=== PATIENT | male | born 1965 | race Caucasian/White ===

== ENCOUNTER 2020-04-30 18:39 | Emergency (ER) | payer OTHER, SELFPAY ==
[2020-04-30] VITALS (8 sets, daily range): BP systolic 121–133; BP diastolic 67–88; RESP 18; TEMP 36.8; O2SAT 90–97
[2020-04-30 19:16] LABS: Add Urine Microscopic? YES; Appearance Urine Clear (Clear); Bilirubin Urine Negative (Negative); Blood Urine Negative (Negative); Color Urine Yellow (Yellow); Glucose Urine UA Negative (Negative); Ketones Urine Trace mg/dL (Negative); Leukocyte Esterase Ur Negative LEU/UL (Negative); Mucus Urine Rare /lpf; Nitrate Urine Negative (Negative); Protein Urine 2+ mg/dL (Negative); RBC Urine 0-2 /hpf (0-2); WBC Urine 0-3 /hpf
[2020-04-30 19:21] LABS: Specific Grav Ur 1.032 (1.001-1.035)
[2020-04-30 19:31] LABS: Basophils Percent Auto 0.2 % (0.2-1.2); Eosinophils Percent Auto 0.4 % (0-4.4); Hematocrit 50.2 % (42.0-52.0); Hemoglobin 16.2 g/dL (14.0-18.0); Immature Granulocyte Absolute 0.03 K/mm3 (0.00-0.031); Immature Granulocyte Percent A 0.6 % (0-0.5); Lymphocytes Absolute Auto 1.13 K/mm3 (0.9-3.2); Lymphocytes Percent Auto 22.9 % (18.3-44.2); Mean Corpuscular HGB Conc 32.3 g/dl (32-36); Mean Corpuscular Volume 83.5 fl (80-100); Mean Platelet Volume 8.9 fl (7.4-10.4); Monocytes Absolute Auto 0.3 K/mm3 (0.1-0.6); Monocytes Percent Auto 5.5 % (2.6-8.5); Neutrophils Absolute Auto 3.5 K/mm3 (1.3-6.7); Neutrophils Percent Auto 70.4 % (45.5-73.1); Platelet Count Result 260 k/mm3 (150-375); Red Blood Count 6.01 M/mm3 (4.6-6.20); Red Cell Distribution Width 13.5 % (11.5-14.5); White Blood Count 4.9 K/mm3 (4.5-10.0)
[2020-04-30] MEDS: SODIUM CHLORIDE 0.9% IV 1,000 ML 999 ML IV CONT (19:49)
--- NOTE | 2020-04-30 19:54 | ED.GENADULT ---
HPI - General Adult General Chief complaint: Urogenital-Male Stated complaint: Retaining urine Time Seen by Provider: 04/30/20 18:44 Source: patient History of Present Illness HPI narrative: Patient is a 55 y/o male complaining of decreased urination for last several days. He states that he has to really try hard to urinate. There is no known alleviating or exacerbating factor. He has no fever, chills, cough, chest pain, abdominal pain or vomiting. He has some diarrhea. He states that he tested positive for COVID 11 days ago. Related Data Home Medications Medication Instructions Recorded Confirmed albuterol sulfate 90 mcg/actuation 1 puff INHALATION Q4H PRN 10/18/19 02/08/20 aerosol inhaler umeclidinium 62.5 mcg-vilanterol 1 inhalation INHALATION DAILY 10/18/19 02/08/20 25 mcg/actuation powdr for inhalation bupropion HCl PO 04/30/20 ciprofloxacin HCl 04/30/20 rosuvastatin mg 04/30/20 umeclidinium-vilanterol [Anoro INHALATION 04/30/20 Ellipta] Allergies Allergy/AdvReac Type Severity Reaction Status Date / Time No Known Allergies Allergy Verified 04/30/20 18:50 Review of Systems Constitutional: Constitutional: Denies chills, Denies fever(s), Denies headache(s) and Denies weakness Eyes: Eyes: Denies blurry vision ENT: Denies headache(s) and Denies neck pain Cardiovascular: Cardiovascular: Denies chest pain and Denies dyspnea Respiratory: Respiratory: Denies cough and Denies dyspnea Gastrointestinal: Gastrointestinal: Denies abdominal pain, Reports diarrhea, Denies nausea and Denies vomiting Genitourinary: Genitourinary: Denies hematuria, Reports oliguria and Denies dysuria Musculoskeletal: Musculoskeletal: Denies back pain and Denies neck pain Neurologic: Denies headache(s) and Denies weakness [facility] Social History Social History Smoking status: Former smoker Alcohol intake: never Exam Const: General: no acute distress and well developed Orientation/consciousness: oriented to person, oriented to place, oriented to time and patient oriented x3 HENMT: Head: normocephalic Ears: external ears normal General nose exam: Normal external nose present Eyes: General: appearance normal, both eyes and all related structures Conjunctivae: conjunctivae normal Neck: Neck: normal visual inspection and full ROM Chest: Chest palpation & inspection: normal inspection of the chest and no tenderness Resp: Effort & Inspection: normal respiratory effort Auscultation: clear to auscultation bilaterally Cardio: Rate: regular rate Rhythm: regular rhythm GI: GI Palp: No abdominal tenderness and Yes Soft to palpation Skin: General skin exam: normal color and turgor normal Neuro: General: oriented to person, oriented to place, oriented to time and patient oriented x3 Cognition (Neuro): normal cognition Extrem: General: normal to inspection, full ROM and no pedal edema Psych: Appearance: grossly normal Mental Status: mental status grossly normal Affect: normal affect Course Vital Signs Vital signs: Vital Signs Temperature 36.8 C 04/30/20 18:44 Respiratory Rate 18 04/30/20 18:44 Blood Pressure 133/88 04/30/20 18:44 Pulse Oximetry 97 04/30/20 18:44 Temperature 36.8 C 04/30/20 20:21 Respiratory Rate 18 04/30/20 18:44 Blood Pressure 121/67 04/30/20 20:45 Pulse Oximetry 96 04/30/20 20:45 Medical Decision Making Vital Signs Vital Signs: Vital Signs Temperature 36.8 C 04/30/20 18:44 Respiratory Rate 18 04/30/20 18:44 Blood Pressure 133/88 04/30/20 18:44 Pulse Oximetry 97 04/30/20 18:44 Temperature 36.8 C 04/30/20 20:21 Respiratory Rate 18 04/30/20 18:44 Blood Pressure 121/67 04/30/20 20:45 Pulse Oximetry 96 04/30/20 20:45 Lab Data Result diagrams: 04/30/20 19:25 04/30/20 19:47 Labs: Lab Results 04/30/20 04/30/20 04/30/20 Range/Units
[2020-04-30 20:03] LABS: Anion Gap 11 mmol/L (8-16); Blood Urea Nitrogen 18 mg/dL (9-20); Carbon Dioxide 34 mmol/L (22-30); Chloride 91 mmol/L (98-107); Estimated CRCL calculation 77 ml/min; Estimated Glomerular Filt Rate > 60; Glucose 140 mg/dL (75-110); Potassium 3.8 mmol/L (3.4-5.0); Sodium 136 mmol/L (137-145)
== END 2020-04-30 20:48 | disposition home or self-care (01) ==
PROVIDERS: Emergency Provider Emergency Medicine; PCP Family Medicine
DX: E86.0 Dehydration (principal); Z86.19 Personal history of other infectious and parasitic diseases
CPT/HCPCS: 36415; 80048; 81001; 85025; 96360; 99283; J7030

== ENCOUNTER 2021-02-25 02:51 | Day surgery (SDC) | payer OTHER, SELFPAY ==
[2021-02-10 09:35] VITALS: BMI 28.5
[2021-02-25 09:25] VITALS: BP 153/89; PULSE 88; RESP 16; TEMP 36.8; O2SAT 98; BMI 27.5
--- NOTE | 2021-02-25 09:36 | WPDGICN ---
Assessment and Plan Assessment and plan (1) Screen for colon cancer: Code(s): Z12.11 - Encounter for screening for malignant neoplasm of colon Status: Acute Assessment and Plan: Patient presents for colon cancer screening colonoscopy. This report follows separately . patient appears to be at average risk for colon polyps. GI Consult Note Consult date/time: 02/25/21 09:36 HPI: Paulie Rogel is a 55 year old male Presents for screening colonoscopy. Patient reports that his current weight appetite bowel movements are normal. He denies abdominal pain. He has had no bleeding. Family history is noncontributory. Review of Systems Review of Systems: All systems reviewed & are unremarkable except as noted in HPI and below PMFSH Past Medical History Medical History (Updated 12/02/20 @ 14:54 by Lg Rush MD) BMI 27.0-27.9,adult BMI 29.0-29.9,adult Chronic upper back pain Hyperlipidemia Screen for colon cancer Social History Social History Years smoked: 35 Smoking status: Former smoker Additional smoking assessment comments: smoked 2 pk/day Alcohol intake: never Substance use type: does not use Living arrangements: with family Additional living arrangements comments: Lives with spouse Spiritual care concerns: No Meds Home Medications and Allergies Home Medications Medication Instructions Recorded Confirmed Type albuterol sulfate 90 mcg/actuation 1 puff INHALATION Q4H PRN 10/18/19 02/25/21 History aerosol inhaler glipizide 5 mg tablet 5 mg PO BID #60 tablet 02/08/20 02/25/21 Rx umeclidinium-vilanterol [Anoro 62.5 ea INHALATION DAILY 04/30/20 02/25/21 History Ellipta] metformin 1,000 mg tablet 1,000 mg PO BID #180 tablet 05/05/20 02/25/21 Rx fluticasone propionate 50 2 spray NASAL DAILY #18.2 ml 07/05/20 02/25/21 Rx mcg/actuation nasal spray,suspension escitalopram oxalate 20 mg tablet 20 mg PO DAILY #30 tablet 10/14/20 02/25/21 Rx trazodone 50 mg tablet 50 mg PO DAILY #30 tablet 11/03/20 02/25/21 Rx rosuvastatin 40 mg tablet 40 mg PO DAILY #30 tablet 11/11/20 02/25/21 Rx bupropion HCl 150 mg tablet,12 hr See Rx Instructions .ROUTE 01/20/21 02/25/21 Rx sustained-release .COMPLEX #30 tablet allopurinol 300 mg tablet 300 mg PO DAILY #30 tablet 02/17/21 02/25/21 Rx Allergies Allergy/AdvReac Type Severity Reaction Status Date / Time No Known Allergies Allergy Verified 02/25/21 09:24 Vital Signs Vital Signs - 24 hr 02/25/21 09:25 Temperature 98.2 F Pulse Rate 88 Respiratory Rate 16 Blood Pressure 153/89 H Pulse Oximetry 98 Exam Narrative: Physical exam reveals patient be alert. Vital signs stable. HEENT exam is unremarkable. Patient is anicteric. Lungs are clear to auscultation and percussion. Heart is without murmur or extra sounds. Abdominal exam bowel sounds are present soft nontender with no hepatosplenomegaly. Digital external rectal exam normal.
[2021-02-25 09:43] LABS: Glucose Point of Care 165 mg/dl (65-105)
[2021-02-25] MEDS: LACTATED RINGERS 1,000 ML 150 ML IV CONT (09:52)
--- NOTE | 2021-02-25 09:58 | WPDANESEPPF ---
Anes - Initial Pre Proc Eval Procedure: Operation Date: 02/25/21 10:45 Proposed Procedures p Screening Colonoscopy - Karthikeyan Garcia MD Date/Time: 02/25/21 09:58 Surgeon: Karthikeyan Garcia MD Pre Op Diagnosis: neoplasm screening Patient Data Age: 55 Gender: M Height: 1.8 m Weight: 89.5 kg Last Vital Signs Temp 36.8 C 02/25/21 09:25 Pulse 88 02/25/21 09:25 Resp 16 02/25/21 09:25 BP 153/89 H 02/25/21 09:25 Pulse Ox 98 02/25/21 09:25 Allergies Allergy/AdvReac Type Severity Reaction Status Date / Time No Known Allergies Allergy Verified 02/25/21 09:24 Home Medications Medication Instructions Recorded Confirmed Type albuterol sulfate 90 mcg/actuation 1 puff INHALATION Q4H PRN 10/18/19 02/25/21 History aerosol inhaler glipizide 5 mg tablet 5 mg PO BID #60 tablet 02/08/20 02/25/21 Rx umeclidinium-vilanterol [Anoro 62.5 ea INHALATION DAILY 04/30/20 02/25/21 History Ellipta] metformin 1,000 mg tablet 1,000 mg PO BID #180 tablet 05/05/20 02/25/21 Rx fluticasone propionate 50 2 spray NASAL DAILY #18.2 ml 07/05/20 02/25/21 Rx mcg/actuation nasal spray,suspension escitalopram oxalate 20 mg tablet 20 mg PO DAILY #30 tablet 10/14/20 02/25/21 Rx trazodone 50 mg tablet 50 mg PO DAILY #30 tablet 11/03/20 02/25/21 Rx rosuvastatin 40 mg tablet 40 mg PO DAILY #30 tablet 11/11/20 02/25/21 Rx bupropion HCl 150 mg tablet,12 hr See Rx Instructions .ROUTE 01/20/21 02/25/21 Rx sustained-release .COMPLEX #30 tablet allopurinol 300 mg tablet 300 mg PO DAILY #30 tablet 02/17/21 02/25/21 Rx Laboratory Tests 02/25/21 09:33 POC Capillary Glucose 165 mg/dl H mg/dl (65-105) Patient hx anesthesia problems: none Family hx anesthesia problems: none Results Review: All pre-operative results and documents have been reviewed as part of the pre-operative evaluation. [facility] Past Medical History Medical History BMI 27.0-27.9,adult BMI 29.0-29.9,adult Chronic upper back pain Hyperlipidemia Screen for colon cancer Social History Social History Years smoked: 35 Smoking status: Former smoker Additional smoking assessment comments: smoked 2 pk/day Alcohol intake: never Substance use type: does not use Living arrangements: with family Additional living arrangements comments: Lives with spouse Spiritual care concerns: No Anes - Eval Final PreProcedure Day of Procedure 02/25/21 09:58 Patient weight: overweight Heart: regular rate and rhythm Lungs: clear to auscultation Airway: Mallampati scale class II Neurological: alert and oriented Last oral intake: >/= 8 hours ASA classification: III Emergent: no Anesthetic plan: proceed Anesthesia type and monitoring: general GIVS and standard monitoring Results Review: All pre-operative results and documents have been reviewed as part of the pre-operative evaluation. Informed Consent: The patient's anesthetic plan and its attendant risks and benefits were discussed with the patient/family/POA. Questions were solicited and answers provided to the satisfaction of the patient/family/POA.
[2021-02-25 10:36] VITALS: BP 85/51; PULSE 81; RESP 17; O2SAT 93
[2021-02-25 10:46] VITALS: BP 104/56; PULSE 83; RESP 20; O2SAT 96
[2021-02-25 10:56] VITALS: BP 118/80; PULSE 80; RESP 23; O2SAT 100
== END 2021-02-25 11:03 | disposition home or self-care (01) ==
PROVIDERS: PCP Family Medicine; Visit Provider Internal Medicine Gastroenterology
PROC: 0DJD8ZZ Inspection of Lower Intestinal Tract, Via Natural or Artificial Opening Endoscopic (ICD-10-PCS; CPT 45378; principal; 2021-02-25 10:45)
DX: Z12.11 Encounter for screening for malignant neoplasm of colon (principal); D12.8 Benign neoplasm of rectum; K64.8 Other hemorrhoids; E78.5 Hyperlipidemia, unspecified; Z87.891 Personal history of nicotine dependence
CPT/HCPCS: 45385; 82948; 88305; J2704; J7120

== ENCOUNTER 2023-03-06 08:45 | Emergency (ER) | payer OTHER, SELFPAY ==
--- NOTE | 2023-03-06 08:50 | ED.URI ---
HPI - URI/Sore Throat General Chief Complaint: Upper Respiratory Infection Stated Complaint: sorethroat Time Seen by Provider: 03/06/23 08:48 Source: patient Mode of arrival: ambulatory Limitations: no limitations History of Present Illness HPI Narrative: Paulie is a 57-year-old male patient presenting to the clinic today with complaints of sore throat x4 days. Woke up with a ?sinus ? headache this morning. he reports no known fever or chills. Does have slight cough and congestion. Denies any chest pain or unusual shortness of breath. Patient does have history of COPD. No known exposure to anyone with COVID, flu, or strep. MD elicited complaint: sore throat and nasal congestion Related Data Home Medications Medication Instructions Recorded Confirmed albuterol sulfate 90 mcg/actuation 1 puff inhalation Q4H PRN 10/18/19 03/06/23 aerosol inhaler (Ventolin HFA) Shortness Of Breath umeclidinium 62.5 mcg-vilanterol 62.5 ea inhalation DAILY 04/30/20 03/06/23 25 mcg/actuation powdr for inhalation (Anoro Ellipta) Allergies Allergy/AdvReac Type Severity Reaction Status Date / Time No Known Allergies Allergy Verified 03/06/23 08:52 Review of Systems Review of Systems: Pertinent positives per HPI. Patient denies any fever, chills, rash, visual changes, dizziness, chest pain, palpitations, nausea, vomiting, diarrhea, constipation, abdominal pain, or any urinary issues. PMFSH Past Medical History Medical History BMI 27.0-27.9,adult BMI 29.0-29.9,adult Chronic upper back pain Hyperlipidemia Screen for colon cancer Family History Family History Father Acute myocardial infarction Heart disease Mother Diabetes mellitus Sibling Heart disease Acute myocardial infarction Social History Social History Years smoked: 35 Smoking status: Former smoker Second hand tobacco smoke exposure: No Additional smoking assessment comments: smoked 2 pk/day Alcohol intake: former Substance use: never Substance use type: does not use Lack of Transportation: No Lack of Food: Never True Current Housing: I Have Housing Concerned About Future Housing: No Difficulty Paying Gas/Electric Bills: No Difficulty Paying for Meds: No Currently Unemployed: No Education: Trade/Vocational Certificate Difficulty w/ Childcare or Family Care: No Living arrangements: with family Additional living arrangements comments: Lives with spouse Occupation/Education: occupation 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 Gender identity (if verbalized by the patient): Male Spiritual care concerns: No Comments At the time of my signature, I reviewed and agree with the nursing past medical, surgical, social, and family history. There is no relevant family history pertinent to the patient complaint. Exam Narrative: General: Well-developed, well nourished, in no apparent distress Head: Normocephalic, atraumatic Eyes: Pupils equally round and reactive to light bilaterally, EOM intact, sclera and conjunctive clear, no discharge, lids normal Ears: TMs intact and clear, ear canals clear, no drainage, grossly hearing normal. Nose: Nares patent, clear nasal discharge, no inflammation, no sinus tenderness. Mouth: Oral pharynx red with exudate to the left tonsil without lesions or masses, good dentition, MMM. Postnasal drip Neck: Supple, trachea midline, no enlargement of anterior or posterior cervical nodes, no thyroid masses or goiter palpable. Cardio: Regular rate and rhythm, s1 and s2 normal, no murmur appreciated. Resp: Clear to auscultation bilaterally, no rhonchi, rales, wheezing or rubs Course Course Emergency Course: Portions of this record may have been created with
[2023-03-06 08:54] VITALS: BP 134/69; PULSE 86; RESP 18; TEMP 36.9; O2SAT 98
== END 2023-03-06 09:09 | disposition home or self-care (01) ==
PROVIDERS: Emergency Provider Nurse Practitioner Family; PCP Family Medicine
DX: J02.9 Acute pharyngitis, unspecified (principal); J06.9 Acute upper respiratory infection, unspecified; Z87.891 Personal history of nicotine dependence; E78.5 Hyperlipidemia, unspecified; J44.9 Chronic obstructive pulmonary disease, unspecified
CPT/HCPCS: 87081; 87880; 99213; G0463

== ENCOUNTER 2023-06-08 12:39 | Emergency (ER) | payer OTHER, SELFPAY ==
[2023-06-08 12:57] VITALS: BP 116/65; PULSE 84; RESP 16; TEMP 36.7; O2SAT 99
--- NOTE | 2023-06-08 12:57 | ED.URI ---
HPI - URI/Sore Throat General Chief Complaint: Upper Respiratory Infection Stated Complaint: cough,congestion Source: patient Mode of arrival: ambulatory Limitations: no limitations History of Present Illness HPI Narrative: 58-year-old male with a history of emphysema and DM presented for complaint of dry cough and chest congestion for of about 5 days. Endorses mild nasal drainage. Denies shortness of breath, wheezing, nausea vomiting diarrhea, fevers or chills. Took NyQuil yesterday. Related Data Home Medications Medication Instructions Recorded Confirmed albuterol sulfate 90 mcg/actuation 1 puff inhalation Q4H PRN 10/18/19 06/08/23 aerosol inhaler (Ventolin HFA) Shortness Of Breath umeclidinium 62.5 mcg-vilanterol 62.5 ea inhalation DAILY 04/30/20 06/08/23 25 mcg/actuation powdr for inhalation (Anoro Ellipta) Allergies Allergy/AdvReac Type Severity Reaction Status Date / Time No Known Allergies Allergy Verified 06/08/23 12:53 Review of Systems Review of Systems: CONSTITUTIONAL: Denies body aches, fever, chills, or sweats. EYES: Denies visual changes, redness, or discharge. ENT: Denies rhinorrhea, congestion, sore throat, or otalgia. CARDIOVASCULAR: Denies chest pain, palpitations, or edema. RESPIRATORY: Reports cough, denies sob, wheezing. GASTROINTESTINAL: Denies abdominal pain, nausea, vomiting, or diarrhea. MUSCULOSKELETAL: Denies back pain, joint pain, or myalgia. NEUROLOGIC: Denies headache, numbness, tingling, or weakness. All systems reviewed & are unremarkable except as noted in HPI and below PMFSH Past Medical History Medical History BMI 27.0-27.9,adult BMI 29.0-29.9,adult Chronic upper back pain Hyperlipidemia Screen for colon cancer Family History Family History Father Acute myocardial infarction Heart disease Mother Diabetes mellitus Sibling Heart disease Acute myocardial infarction Social History Social History Years smoked: 35 Smoking status: Former smoker Second hand tobacco smoke exposure: No Additional smoking assessment comments: smoked 2 pk/day Alcohol intake: former Substance use: never Substance use type: does not use Lack of Transportation: No Lack of Food: Never True Current Housing: I Have Housing Concerned About Future Housing: No Difficulty Paying Gas/Electric Bills: No Difficulty Paying for Meds: No Currently Unemployed: No Education: Trade/Vocational Certificate Difficulty w/ Childcare or Family Care: No Living arrangements: with family Additional living arrangements comments: Lives with spouse Occupation/Education: occupation 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 Gender identity (if verbalized by the patient): Male Spiritual care concerns: No Comments At time of signature, I have reviewed and agree with nursing past medical, surgical, social and family history unless otherwise noted. Please see nursing chart for further information. There is no relevant family history pertinent to the presenting complaint Exam Narrative: GENERAL: Well-appearing, in no acute distress. EYES: EOMI. No redness or drainage. Conjunctivae normal. ENT: Mucous membranes pink and moist. No rhinorrhea. TMs normal bilaterally. Throat normal. Uvula midline. NECK: Normal AROM. Supple. CHEST: No respiratory distress. Lungs clear to all gabriel. HEART: Regular rate and rhythm. No murmur appreciated. ABDOMEN: Soft, nontender, nondistended, normal active bowel sounds. EXTREMITIES: Normal range of motion. No edema. SKIN: Warm, dry, no rash. Capillary refill normal. Normal skin turgor. NEURO: Alert and oriented x3. Gait steady. PSYCH: Normal affect. Course Course Emergency Course: Patient is
== END 2023-06-08 13:14 | disposition home or self-care (01) ==
PROVIDERS: Emergency Provider Nurse Practitioner Family; PCP Family Medicine
DX: J40 Bronchitis, not specified as acute or chronic (principal); Z87.891 Personal history of nicotine dependence; E78.5 Hyperlipidemia, unspecified
CPT/HCPCS: 99213; G0463

== ENCOUNTER → 2023-07-01 13:03 | Outpatient (CLI) | payer OTHER, SELFPAY ==
--- NOTE | ~2023-07-01 | CT_ITS ---
CT Scan of the Chest without Contrast: Clinical Indication: Lung cancer screening, smoking history Technique: Contiguous sections were acquired throughout the chest without intravenous contrast. Dose reduction technique was used on this scan by utilizing automated exposure control and iterative recon struction technique. The dose-length product (DLP) was 132.42 mGy-cm. COMPARISON: 03/16/2019 Findings: There is no evidence of any significant mediastinal, hilar or axillary lymphadenopathy. The mediastin al soft tissues appear normal. There is no evidence of pleural or pericardial effusion. Stable area of scarring left lung apex. Scattered calcified granulomas are present. Moderate emphysem a present. Images through the upper abdomen reveal no abnormalities. Impression: Lung RADS 2: Benign appearance. 12 month follow-up screening CT advised. Reviewed, dictated and finalized at [facility]. [employer] Impression: Lung RADS 2: Benign appearance. 12 month follow-up screening CT advised.
== END ==
DX: Z12.2 Encounter for screening for malignant neoplasm of respiratory organs (principal); Z87.891 Personal history of nicotine dependence
CPT/HCPCS: 71271

== ENCOUNTER 2024-08-25 13:53 | Outpatient (CLI) | payer OTHER, SELFPAY ==
--- NOTE | ~2024-08-25 | CT_ITS ---
CT Scan of the Chest without Contrast: Clinical Indication: Lung cancer screening, nicotine dependence Technique: Contiguous sections were acquired throughout the chest without intravenous contrast. Dose reduction technique was used on this scan by utilizing automated exposure control and iterative recon struction technique. The dose-length product (DLP) was 142.29 mGy-cm. COMPARISON: 07/01/2023 Findings: There is no evidence of any significant mediastinal, hilar or axillary lymphadenopathy. The mediastin al soft tissues appear normal. There is no evidence of pleural or pericardial effusion. There is advanced emphysema. Stable spiculated nodule left lung apex, likely related to chronic scarr ing. Stable calcified left upper lobe granulomas. Images through the upper abdomen reveal no abnormalities. Impression: Lung RADS 2: Benign appearance. 12 month follow-up screening CT advised. Reviewed, dictated and finalized at location . Impression: Lung RADS 2: Benign appearance. 12 month follow-up screening CT advised.
== END 2024-08-25 13:54 | disposition home or self-care (01) ==
LOC: MICIMG 13:54
PROVIDERS: PCP Family Medicine; Visit Provider Internal Medicine Pulmonary Disease
DX: Z12.2 Encounter for screening for malignant neoplasm of respiratory organs (principal); Z87.891 Personal history of nicotine dependence
CPT/HCPCS: 71271